=== PATIENT | female | born 1990 | race Asian ===

== ENCOUNTER 2024-05-08 11:56 | Inpatient (IN) ==
[2024-05-08] MEDS ORDERED: LACTATED RINGER'S 1,000 ML IV SCH ×3 (12:15→13:45)
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
[2024-05-08] MEDS ORDERED: DEXAMETHASONE SOD INJ 4 MG/ML VIAL ONE (12:21)
[2024-05-08] MEDS ORDERED: OXYTOCIN 10 UNITS/ML VIAL ONE (12:21)
[2024-05-08] MEDS ORDERED: ONDANSETRON INJ 2 MG/ML 2 ML VIAL ONE ×2 (12:21→13:20)
[2024-05-08] MEDS ORDERED: PHENYLEPHRINE HCL 25 MG/250 ML NSS IV ONE (12:21)
[2024-05-08] MEDS ORDERED: KETOROLAC 30 MG/ML VIAL ONE (12:21)
[2024-05-08] MEDS ORDERED: MoRPHine SULFATE PF 1 MG/ML 10 ML AMP/VIAL ONE (12:21)
[2024-05-08] MEDS ORDERED: fentaNYL citrate PF 100 MCG/2 ML VIAL ONE (12:22)
[2024-05-08] MEDS: CITRIC ACID/SODIUM CITRATE 15 ML UDC PO ONE (12:41)
[2024-05-08] MEDS: ACETAMINOPHEN 500 MG TAB PO SCH (12:41)
[2024-05-08] MEDS: ceFAZolin 2000MG 2,000 MG/15 ML SYR IV ONE (12:42)
[2024-05-08 12:50] LABS: Hematocrit (blood only) 38.9 % (37.0-47.0); Hemoglobin 13.2 g/dl (12.0-16.0); Mean Corpuscular Hemoglobin 33.2 pg (25.0-34.0); Mean Corpuscular Hgb Conc 33.9 g/dL (32.0-36.0); Mean Platelet Volume 9.7 fL (9.4-12.4); Platelet Count 144 K/uL (130-400); RDW Coefficient of Variation 13.5 % (11.5-14.5); RDW Standard Deviation 48.6 fL (36.4-46.3); Red Blood Count 3.97 M/uL (4.20-5.40); White Blood Count 5.55 K/ul (4.8-10.8)
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
[2024-05-08 13:16] LABS: Base Excess Cord Arterial Bld -1.1 mEq/L (-9-1.8); CO2 Cord Arterial Blood 56 mmHg (39.1-73.5); Cord Venous Blood HCO3 26 mmol/L (18.4-26.8); Cord Venous Blood PCO2 49 mmHg (30.4-57.2); Cord Venous Blood PO2 30 mmHg (14.1-43.3); Cord Venous Blood pH 7.33 (7.20-7.44); HCO3 Cord Arterial Blood 27 mmol/L (19.7-28.5); O2 Saturation Cord Venous Bld 63.9 % (<68); Oxygen Sat Cord Arterial Blood < 60.0 % (<60); PO2 Cord Arterial Blood 21 mmHg (4.1-31.7); pH Cord Arterial Blood 7.29 (7.1-7.38)
[2024-05-08] MEDS ORDERED: PROMETHAZINE HCL INJ 25 MG/ML 1 ML VIAL ONE (13:20)
[2024-05-08] MEDS ORDERED: ONDANSETRON INJ 2 MG/ML 2 ML VIAL IV PRN (13:23)
[2024-05-08] MEDS ORDERED: NALBUPHINE HCL INJ 10 MG/ML AMP IV PRN (13:23)
[2024-05-08] MEDS ORDERED: NALOXONE HCL 0.4 MG/1 ML VIAL/CARP IV PRN (13:23)
[2024-05-08] MEDS ORDERED: MoRPHine SULFATE PF 1 MG/ML 10 ML AMP/VIAL INT SPINAL ONE (13:23)
[2024-05-08] MEDS ORDERED: diphenhydrAMINE 50 MG/ML VIAL IV PRN (13:23)
[2024-05-08] MEDS ORDERED: HYDROmorphone INJ 0.5 MG/0.5 ML SYR IV PRN (13:23)
[2024-05-08] MEDS ORDERED: ePHEDrine sulfate 50 MG/ML AMP IV PRN (13:23)
[2024-05-08] MEDS ORDERED: NALOXONE HCL 1 MG in SODIUM CHLORIDE 0.9% 1,000 ML IV PRN (13:23)
[2024-05-08] MEDS ORDERED: PROMETHAZINE 6.25 MG/50.25 ML BAG IV PRN (13:23)
[2024-05-08] MEDS ORDERED: PHENYLEPHRINE 100MCG/ML 5ML SYR ONE (13:25)
[2024-05-08] MEDS ORDERED: ePHEDrine sulfate 50 MG/5 ML SYR ONE (13:25)
[2024-05-08] MEDS ORDERED: NO NARCOTICS OR SEDATIVES SCH (13:30)
[2024-05-08] MEDS ORDERED: CALCIUM CARBONATE 500 MG CHEWABLE TAB PO PRN (13:37)
[2024-05-08] MEDS ORDERED: DIPHTHER/TETAN/PERTUS Vaccine (Tdap, Adol/Adult) 0.5mL IM ONE (13:37)
[2024-05-08] MEDS ORDERED: BENZOCAINE 20% SPRY 85 APPLN/85 GM CAN EXT PRN (13:37)
[2024-05-08] MEDS ORDERED: HYDROCORTISONE ACETATE 25 MG SUPP PR PRN (13:37)
[2024-05-08] MEDS ORDERED: MAGNESIUM HYDROXIDE SUSP 30 ML UDC PO PRN (13:37)
[2024-05-08] MEDS ORDERED: SENNA 8.6 MG TAB PO PRN (13:37)
--- NOTE | 2024-05-08 13:42 | Operative Report ---
PG Post Operative Report Pre & Post Diagnosis Operation Date: 05/08/24 12:25 Pre-Op Diagnosis: 1. Tachycardia 2. Suspected LGA 3. at 39 weeks Post-Op Diagnosis: Same I identified the patient and participated in the time-out.: Yes Procedure Operation Date: 05/08/24 12:25 Actual Procedures p Section in LD; Primary Lower Uterine Transverse Section for the of a live boy at 1302. Right Ashtyn-tubal cystectomy(Bilateral) - Shira Monreal MD, FACOG Surgeon Shira Monreal MD, FACOG Outpatient Coordinator [facility], Ricarda Avalos, [place] Estimated Blood Loss 563 Findings Consistent with Post-Op Diagnosis viable male infant, apgars 9/9 normal uterus and ovaries bilaterally. right paratubal cyst noted, 3cm, right tube appears normal, left tube normal. Fluids ivf--1000cc uop--150cc clear urine. Specimens paratubal cyst wall Drains love Anesthesia Type Spinal Disposition Accompanied Patient To Recovery: Yes Disposition: L&D Indications at 39 1/7weeks. tachycardia in 220s. Description of Procedure The patient was taken to the operating room where she was identified verbally and by bracelet. She was seated on the operating table where a spinal anesthetic was placed by anesthesia. She was then placed in the supine position with a leftward tilt. A Love catheter was placed sterilely. the patient was prepped and draped in a normal standard fashion. the anesthetic was tested and found to be adequate. A time-out was held, identifying correct patient, procedure, positioning and preoperative antibiotics. There were no concerns. A Pfannenstiel skin incision was made with a knife and taken down to the underlying layer of fascia with the knife and Bovie electrocautery. Bleeding was attended to with the Bovie. The fascia was incised in the midline with the knife and taken out laterally with scissors. The superior edge of the fascial incision was grasped, elevated and the underlying layer of rectus muscle was taken off bluntly and with scissors. In a similar fashion, the inferior edge of the fascial incision was grasped, elevated and the underlying layer of rectus muscle was taken off bluntly and with scissors. The muscles were bluntly in the midline. The peritoneum was entered bluntly. The incision was then stretched. The bladder blade was placed. The vesicouterine peritoneum was identified, entered with scissors and taken out laterally with scissors. The bladder flap was created digitally A hysterotomy incision was scored with a knife and the incision was stretched superiorly and inferiorly with the spraying machine operator's fingers. The operators hand was placed into the incision and the head was delivered atraumatically via fundal pressure. No nuchal cord. The nose and mouth were bulb suctioned. the rest of the infant was then delivered without difficulty. The nose and mouth were again bulb suctioned. The cord was clamped and cut and the infant was then handed off to the awaiting machining engineer for drying and attention. Cord blood and segment were obtained. The placenta was expressed by fundal massage. The uterus was exteriorized and cleared of all clot and debris with moistened laparotomy sponges. The hysterotomy incision was repaired in two layers, the first in a running locked layer, the second in an imbricating layer. Hemostasis was noted to be good. Posterior cul-de-sac was irrigated and cleared of all clot and debris. The hysterotomy incision was again inspected and several stitches needed for hemostasis. the uterus was reinteriorized. Hysterotomy incision was again inspected and found to be hemostatic. The fascia was then reapproximated with 0 Vicryl starting at the edges and meeting in the midline. The subcuticular tissues were copiously irrigated and bleeding was attended to with cautery. The skin was then closed with 4-0 Vicryl in a subcuticular fashion. All sponge, lap and needle counts were correct x 2. The patient tolerated the procedure well and was taken to the recovery room in stable condition. I attest to the content of the Intraoperative Record and any orders documented therein. Any exceptions are noted below. OB Procedure Charges 91750 (partial right paratubal cystectomy)
--- NOTE | 2024-05-08 13:55 | Anesthesiology Progress Note ---
Date of Service May 08, 2024 Anesthesia Post Procedure Vital Signs Vital Signs: Pulse BP Pulse Ox 05/08/24 13:54 81 99 05/08/24 13:50 67 118/67 05/08/24 13:49 79 99 05/08/24 13:44 78 99 05/08/24 13:40 74 124/69 05/08/24 13:39 72 99 Transfer of Care Handoff Completed per policy Notes Mental Status: alert / awake / arousable and participated in evaluation Patient Amnestic to Procedure: No Nausea / Vomiting: adequately controlled Pain: adequately controlled Airway Patency, RR, SpO2: stable & adequate BP & HR: stable & adequate Hydration State: stable & adequate Neuraxial Anesthesia: was administered and sensory block is resolving Anesthetic Complications: no major complications apparent and Pt Satisfied with anesthetic care
[2024-05-08] MEDS: SIMETHICONE 80 MG CHEW PO SCH (17:34)
[2024-05-08] MEDS: KETOROLAC 30 MG/ML VIAL IV SCH (20:06)
[2024-05-08] MEDS: ACETAMINOPHEN 325 MG TAB PO SCH (20:06)
[2024-05-08] MEDS: DOCUSATE SODIUM 100 MG CAP PO SCH (20:06)
[2024-05-08] MEDS: OXYTOCIN 20 UNITS/LR 1,002 ML IV SCH (21:56)
[2024-05-09 06:27] LABS: Basophils # (auto) 0.01 K/uL (0.00-0.20); Basophils % (auto) 0.1 %; Eosinophils # (auto) 0.04 K/uL (0.00-0.50); Eosinophils % (auto) 0.5 %; Hematocrit (blood only) 31.2 % (37.0-47.0); Hemoglobin 10.5 g/dl (12.0-16.0); Immature Granulocytes # (auto) 0.04 K/uL (0.01-0.20); Immature Granulocytes % (auto) 0.5 %; Lymphocytes # (auto) 1.55 K/uL (1.20-3.40); Lymphocytes % (auto) 18.9 %; Mean Corpuscular Hemoglobin 32.8 pg (25.0-34.0); Mean Corpuscular Hgb Conc 33.7 g/dL (32.0-36.0); Mean Corpuscular Volume 97.5 fL (80.0-100.0); Monocytes # (auto) 0.82 K/uL (0.11-0.59); Neutrophils # (auto) 5.74 K/uL (1.40-6.50); Platelet Count 111 K/uL (130-400); RDW Coefficient of Variation 13.3 % (11.5-14.5); RDW Standard Deviation 47.6 fL (36.4-46.3)
[2024-05-09] MEDS: LEVOTHYROXINE SODIUM 25 MCG TABLET PO SCH (06:46)
[2024-05-09] MEDS ORDERED: diphenhydrAMINE 50 MG/ML VIAL IV PRN (07:23)
[2024-05-09] MEDS ORDERED: DC INTRASPINAL MORPHINE ONE (07:23)
[2024-05-09] MEDS ORDERED: oxyCODONE HCL IR 5 MG TAB (IMMEDIATE RELEASE) PO PRN (07:23)
[2024-05-09] MEDS ORDERED: HYDROmorphone INJ 0.5 MG/0.5 ML SYR IV PRN (07:23)
[2024-05-09] MEDS ORDERED: diphenhydrAMINE Capsule 25 MG CAP PO PRN (07:23)
[2024-05-09] MEDS ORDERED: PROMETHAZINE 12.5 MG/50.5 ML BAG IV PRN (07:24)
[2024-05-09] MEDS ORDERED: ONDANSETRON INJ 2 MG/ML 2 ML VIAL IV PRN (07:24)
[2024-05-09] MEDS: NALOXONE HCL 0.08 MG in SYRINGE 1.8 ML IV PRN (07:33)
[2024-05-09] MEDS: PRENATAL VITAMIN 1 TAB PO SCH (07:35)
[2024-05-09] MEDS: FERROUS SULFATE 325 MG TAB PO SCH (07:35)
--- NOTE | 2024-05-09 07:54 | Medical Student Progress Note ---
Date of Service May 09, 2024 Assessment & Plan (1) delivery affecting : Plan Urinary Retention - Retaining ~700cc urine. - Will be treated with Narcan and observed for spontaneous void for 30 min up to two times. - If patient unable to spontaneously void, insert urinary catheter to relieve bladder distention. - consultation to aid mom in pumping while from baby - 3cm R paratubal cyst identified and drained during CS. Cystectomy performed and specimen sent to pathology. Results pending. S/P Cesarian Section - Continue care as per protocol. - Pain managed appropriately per patient. - Encouraged ambulation. Keep SCDs on until ambulating regularly. Plan to discharge as soon as patient is medically stable. Must be ambulating, spontaneously voiding urine, at least 24 hrs post CS. Admission and Anticipated Discharge Date Admission Date: May 08, 2024 Shanita Barrett is a 34 y/o female at 39w 1 day s/p CS. She delivered a baby boy (Max) at 13:02 on 05/08/2024. Performed emergently one day prior to scheduled CS due to tachycardia (210 bpm). was complicated by GDM, hypothyroidism. Max was transferred to [place] for higher level of care and treated with cardioversion for atrial flutter and is now intubated in PICU. Mom is doing well, relaxed comfortably in bed. Mom endorses pruritus all over her body which started 2-3hrs post CS. Denies fever, chills, dizziness or lightheadedness, SOB, cough, CP, palpitat ions, breast pain or discharge, calf pain Not currently breast feeding due to baby being transferred to [place] for higher level of care. She wishes to breast feed during this Pain: Denies Lochia: Moderate-bright red blood. Changing pad every few hours. Diet: Regular OB diet Gas: Passing gas, no bowel movements Peeing: Not Passed Urine after love's removal Ambulation: to Bathroom/ Corridor without any complication Physical Exam Constitutional: Well appearing, in no acute distress. Respiratory: Lungs clear to auscultation bilaterally. No wheezing, rales or rhonchi. Cardiovascular: Regular rate and rhythm. +S3 heart sound. No murmurs, rubs. Peripheral pulses +2 and equal in upper and lower extremities bilaterally. No lower extremity edema or calf tenderness. Gastrointestinal (Abdomen): Hyperactive bowel sounds. Abdomen distended, soft. Incision site healing well with minimal discharge, erythema. Skin: No rashes or lesions Neurologic: A&Ox3. No focal neurological deficits. Psychiatric: Appropriate mood and affect. Managing stress well considering health condition of child. Results & Data Vital Signs (Past 12 Hours) Vital Signs Temp Pulse Resp BP Pulse Ox O2 Del Method 05/09/24 04:00 16 99 05/09/24 04:00 36.7 C 72 16 99/63 L 99 Room Air 05/09/24 03:00 16 98 05/09/24 02:00 18 100 05/09/24 01:00 16 98 05/09/24 00:00 16 97 05/08/24 23:06 36.7 C 69 16 95/59 L 98 Room Air 05/08/24 23:05 16 100 05/08/24 22:00 18 98 05/08/24 21:04 18 100 05/08/24 20:00 16 99 05/08/24 20:00 37.1 C 81 16 107/72 99 Room Air 05/08/24 19:30 20 99 Laboratory Results 05/09/24 05/08/24 05/08/24 Range/Units 05:55 Unknown Unknown WBC 8.20 (4.8-10.8) K/ul RBC 3.20 L (4.20-5.40) M/uL Hgb 10.5 L (12.0-16.0) g/dl Hct 31.2 L (37.0-47.0) % MCV 97.5 (80.0-100.0) fL MCH 32.8 (25.0-34.0) pg MCHC 33.7 (32.0-36.0) g/dL RDW Std Deviation 47.6 H (36.4-46.3) fL RDW Coeff of Ashli 13.3 (11.5-14.5) % Plt Count 111 L (130-400) K/uL MPV 10.0 (9.4-12.4) fL Immature Gran % (Auto) 0.5 % Neut % (Auto) 70.0 % Lymph % (Auto) 18.9 % [place] % (Auto) 10.0 % Eos % (Auto) 0.5 % Baso % (Auto) 0.1 % Neut # (Auto) 5.74 (1.40-6.50) K/uL Lymph # (Auto) 1.55 (1.20-3.40) K/uL [place] # (Auto) 0.82 H (0.11-0.59) K/uL Eos # (Auto) 0.04 (0.00-0.50) K/uL Baso # (Auto) 0.01 (0.00-0.20) K/uL Immature Gran # (Auto) 0.04 (0.01-0.20) K/uL Cord ABG pH 7.29 (7.1-7.38) Cord ABG pCO2 56 (39.1-73.5) mmHg Cord ABG pO2 21 (4.1-31.7) mmHg Cord ABG HCO3 27 (19.7-28.5) mmol/L Cord ABG Base Excess -1.1 (-9-1.8) mEq/L Cord ABG O2 Sat < 60.0 (<60) % Cord VBG pH 7.33 (7.20-7.44) Cord VBG pCO2 49 (30.4-57.2) mmHg Cord VBG pO2 30 (14.1-43.3) mmHg Cord VBG HCO3 26 (18.4-26.8) mmol/L Cord VBG Base Excess -1.0 (-7.7-1.9) mEq/L Cord VBG O2 Sat 63.9 (<68) % Blood Gas Comments ZHU ZHU Treponema pallidum Ab (Negative) Blood Type Antibody Screen 05/08/24 Range/Units 12:25 WBC 5.55 (4.8-10.8) K/ul RBC 3.97 L (4.20-5.40) M/uL Hgb 13.2 (12.0-16.0) g/dl Hct 38.9 (37.0-47.0) % MCV 98.0 (80.0-100.0) fL MCH 33.2 (25.0-34.0) pg MCHC 33.9 (32.0-36.0) g/dL RDW Std Deviation 48.6 H (36.4-46.3) fL RDW Coeff of Ashli 13.5 (11.5-14.5) % Plt Count 144 (130-400) K/uL MPV 9.7 (9.4-12.4) fL Immature Gran % (Auto) % Neut % (Auto) % Lymph % (Auto) % [place] % (Auto) % Eos % (Auto) % Baso % (Auto) % Neut # (Auto) (1.40-6.50) K/uL Lymph # (Auto) (1.20-3.40) K/uL [place] # (Auto) (0.11-0.59) K/uL Eos # (Auto) (0.00-0.50) K/uL Baso # (Auto) (0.00-0.20) K/uL Immature Gran # (Auto) (0.01-0.20) K/uL Cord ABG pH (7.1-7.38) Cord ABG pCO2 (39.1-73.5) mmHg Cord ABG pO2 (4.1-31.7) mmHg Cord ABG HCO3 (19.7-28.5) mmol/L Cord ABG Base Excess (-9-1.8) mEq/L Cord ABG O2 Sat (<60) % Cord VBG pH (7.20-7.44) Cord VBG pCO2 (30.4-57.2) mmHg Cord VBG pO2 (14.1-43.3) mmHg Cord VBG HCO3 (18.4-26.8) mmol/L Cord VBG Base Excess (-7.7-1.9) mEq/L Cord VBG O2 Sat (<68) % Blood Gas Comments Treponema pallidum Ab Negative (Negative) Blood Type A Positive Antibody Screen NEGATIVE Supervising Attestation Patient seen and evaluated with MS2. Please see resident note.
--- NOTE | 2024-05-09 08:02 | Obstetrical Progress Note ---
Date of Service May 09, 2024 Assessment & Plan (1) tachycardia affecting management of mother: (2) delivery delivered: Plan 34 years at 39+1 week POG. # 1POD following Section Continue care as per protocol. Encouraged ambulation. Encouraged deep breathing. consultation for breast pump. Narcan for retention. Will trial voiding after 30 minutes upto 2 times. If not able to void, will insert catheter Admission and Anticipated Discharge Date Admission Date: May 08, 2024 Supervising Physician Co-Signing Physician Notes Resident Physician Supervision Note: I interviewed and examined the patient. Discussed with Dr. Lin and agree with findings and plan as documented in the note. Any exceptions or clarifications are listed here: Doing well. Some urinary retention at present. Routine care. Discussed unable to d/c until medically cleared. Patient expresses understanding. Baby transferred. Documented By: Shira Monreal MD, FACOG Subjective 34years at 39+1 week POG. #1POD following delivery Mom reports pruritus all over body 2 -3 hour post CS Baby transferred to [place] for higher level of care Pain: Mild, intermittent, manageable on painkillers. Lochia: Moderate Diet: Regular OB diet Gas: Not aware of passing, but no abdominal distension Peeing:Not Passed Urine after love's removal. Bladder scan shows 700ml urine Ambulation: to Bathroom without any complication Answered her queries. Review of Systems Review of Systems: As per HPI Physical Exam Physical Exam: General: Alert and oriented. No acute distress. CVS: S1 S2+ No murmurs, regular rhythm. Respiratory: CTA bilaterally. No rhonchi, wheezes, or crackles. No increased work of breathing. Abdomen: Distended , Bowel sound +. Uterus: Fundus firm and palpable few cm below the umbilicus. Incision site looks healthy: Dry, No swelling, Erythema Lower extremities: No LE edema. No deep calf pain. Results & Data Vital Signs (Past 12 Hours) Vital Signs Temp Pulse Resp BP Pulse Ox O2 Del Method 05/09/24 04:00 16 99 05/09/24 04:00 36.7 C 72 16 99/63 L 99 Room Air 05/09/24 03:00 16 98 05/09/24 02:00 18 100 05/09/24 01:00 16 98 05/09/24 00:00 16 97 05/08/24 23:06 36.7 C 69 16 95/59 L 98 Room Air 05/08/24 23:05 16 100 05/08/24 22:00 18 98 05/08/24 21:04 18 100
[2024-05-09] MEDS ORDERED: KETOROLAC 30 MG/ML VIAL IV PRN (19:30)
[2024-05-09 19:41] VITALS: RESP 16
[2024-05-09] MEDS: bisacodyL 5 MG TABEC PO SCH (20:17)
[2024-05-09] MEDS: IBUPROFEN 600 MG TAB PO SCH (20:17)
[2024-05-10 06:56] LABS: Hematocrit (blood only) 34.2 % (37.0-47.0); Hemoglobin 11.5 g/dl (12.0-16.0); Mean Corpuscular Hemoglobin 32.9 pg (25.0-34.0); Mean Corpuscular Hgb Conc 33.6 g/dL (32.0-36.0); Mean Corpuscular Volume 97.7 fL (80.0-100.0); Mean Platelet Volume 9.6 fL (9.4-12.4); Platelet Count 125 K/uL (130-400); RDW Coefficient of Variation 13.6 % (11.5-14.5); RDW Standard Deviation 48.6 fL (36.4-46.3); White Blood Count 6.16 K/ul (4.8-10.8)
--- NOTE | 2024-05-10 08:06 | Obstetrical Progress Note ---
Date of Service May 10, 2024 Assessment & Plan (1) tachycardia affecting management of mother: (2) delivery delivered: Plan 34 years at 39+1 week POG. # 2 POD following Section -She feels ready to go home today -Discharge today -Follow up after 6 weeks. Admission and Anticipated Discharge Date Admission Date: May 08, 2024 Supervising Physician Co-Signing Physician Notes Resident Physician Supervision Note: I was present with Dr. Lin during the history and exam. I discussed the case with the resident and agree with the findings and plan as documented in the note. Any exceptions or clarifications are listed here: POD2 doing well. DC home today, followup 6w in office. Reviewed postop instructions. Incision CDI. Documented By: Marichuy Parnell, Subjective 34years at 39+1 week POG. #2 POD following delivery Mom reports her pruritus is better today. Baby was transferred to [place] for higher level of care. According to parents, baby is getting better. Extubated , under O2 . Pain: Mild, intermittent, manageable on painkillers. Lochia: Moderate Diet: Regular OB diet Gas: Aware of passing,minimal, but no abdominal distension Peeing: Passed urine, peeing well Ambulation: to Bathroom without any complication Answered her queries. Review of Systems Review of Systems: As per HPI Physical Exam Physical Exam: General: Alert and oriented. No acute distress. CVS: S1 S2+ No murmurs, regular rhythm. Respiratory: CTA bilaterally. No rhonchi, wheezes, or crackles. No increased work of breathing. Abdomen: Distended , Bowel sound +. Uterus: Fundus firm and palpable few cm below the umbilicus. Incision site looks healthy: Dry, No swelling, Erythema Lower extremities: No LE edema. No deep calf pain. Results & Data Vital Signs (Past 12 Hours) Vital Signs Temp Pulse Resp BP O2 Del Method 05/09/24 23:30 36.6 C 76 16 109/72 Room Air
[2024-05-10 08:44] VITALS: TEMP 97.7; O2SAT 99
[2024-05-10 12:13] VITALS: BP 99/63; PULSE 72
[2024-05-10] MEDS ORDERED: bisacodyL 10 MG SUPP PR PRN (13:34)
[2024-05-10] MEDS ORDERED: IBUPROFEN 600 MG TAB PO PRN (19:30)
[2024-05-10] MEDS ORDERED: ACETAMINOPHEN 325 MG TAB PO PRN (19:34)
--- NOTE | 2024-05-11 12:49 | Discharge Summary ---
Date of Service May 11, 2024 Admission HPI Per Admitting Provider Patient is a 34yowf with iup at 39 1/7. Patient scheduled for elective c/s tomorrow for concern for size. AC on 04/17 was 95%, EFW 89%, GDM. Patient presented to the office today for preop . Noted some decreased FM. FHT noted to be in the 200s. Unsure etiology. Decision made to proceed with delivery. and Delivery Plans Hypothroid in -endo referrral *TSH Q4wks. 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 ROBISON AND DR. MARAVILLA ASSIST OB Labs: Blood Type A Positive 12/03/23 Antibody Screen NEGATIVE 12/03/23 Hgb 12.0 g/dl (12.0-16.0) 02/29/24 Hct 35.9 % (37.0-47.0) L 02/29/24 MCV 92.8 fL (80.0-100.0) 12/03/23 Plt Count 225 K/uL (130-400) 12/03/23 Rubella IgG Antibody Immune (Immune) 12/03/23 Treponema pallidum Ab Negative (Negative) 02/29/24 Hep Bs Antigen Negative (Negative) 12/03/23 Hepatitis C Antibody Negative (Negative) 12/03/23 HIV 1&2 Ab/P24 Ag 4thGn Negative (Negative) 12/03/23 Glucose 1 Hr 50 gm 153 mg/dl (70-130) H 12/29/23 OB Optional Labs: Chlamydia trachomatis RNA Not Detected (NotDetected) 12/03/23 Neisseria gonorrhoeae RNA Not Detected (NotDetected) 12/03/23 Thyroid Stimulating Hormone (TSH) 1.01 uIU/mL (0.30-4.50) 04/04/24 Labs Reviewed: low risk panorama--akh +sma screen, neg for other 3--akh gbs negative Discharge Data Consultations 05/08/24 12:16 Consult Anesthesiology Stat Procedures Performed Operation Date: 05/08/24 12:25 Actual Procedures p Section in LD; Primary Lower Uterine Transverse Section for the of a live boy at 1302. Right Ashtyn-tubal cystectomy(Bilateral) - Shira Maravilla MD, [facility] Course (1) delivery delivered: (2) tachycardia affecting management of mother: Plan Patient underwent a primarly low transverse c/s without complications, QBL 563cc. A paratubal cyst was also excised at the time of surgery. Her postop course was complicated by urinary retention, which did eventually resolve. Ambulated, tolerated a regular diet and had her pain controlled on oral pain meds. She was d/c on postop day 2. Baby was transferred to NICU. INstructions reviewed. f/u in 6 weeks. Coding Level of Care Code None Diagnoses delivery delivered O82 tachycardia affecting management of mother O36.8390
== END 2024-05-10 13:30 | disposition home or self-care (01) | DRG 785 ==
LOC: OPB 11:56 → 4S1 12:01 → 4E2 16:11
DX: O36.8130 Decreased fetal movements, third trimester, not applicable or unspecified; Z3A.39 39 weeks gestation of pregnancy; O99.284 Endocrine, nutritional and metabolic diseases complicating childbirth; Z37.0 Single live birth; E03.9 Hypothyroidism, unspecified; O76 Abnormality in fetal heart rate and rhythm complicating labor and delivery; O99.892 Other specified diseases and conditions complicating childbirth; R33.9 Retention of urine, unspecified; N83.8 Other noninflammatory disorders of ovary, fallopian tube and broad ligament; O36.63X0 Maternal care for excessive fetal growth, third trimester, not applicable or unspecified; O24.419 Gestational diabetes mellitus in pregnancy, unspecified control; O26.893 Other specified pregnancy related conditions, third trimester